=== PATIENT | male | born 1955 | race Caucasian/White ===

== ENCOUNTER → 2017-03-02 | Outpatient (CLI) | payer MEDICARE, OTHER ==
[~2017-03-02] MED LIST: ACTOS PO; ASPIRINEC PO; CERTAVITE PO; COLACE PO; CORRECTOL5 MG PO; DEPAKOTE (UD)250 M1 PO; FISH OIL 1,0001 CAP PO; HUMULIN R100 U/ML SUBQ; MAALOX SUSPENSI30 ML PO; MEVACOR PO; MYLANTA400 MG PO; NOVOLIN R100 U/ML INJ; OYSTER CALCIUM500 MG PO; PAXIL PO; PRILOSEC PO; ROCALTROL PO; ZETIA PO
--- NOTE | ~2017-03-02 | CT71 ---
[facility] A Service of [facility] RADIOLOGY TEXT RESULTS PATIENT: PARI LANDEROS LOCATION: [facility] : 53 UNIT #: [id number] AGE: [address]: Basilio Smith MD SEX: M ORDER DR: [id number] [facility] [address] [place], [place] [address] [id number] O MR#: [id number] [facility] #: [id number] NAME: PARI LANDEROS : 1955 SEX: M STUDY DATE/TIME: 03/02/2017 9:13 UNIT: [facility] ROOM: STUDY DESCRIPTION: CT Head Wo Contrast Attending Physician: Basilio Smith Sr., M.D. Referring Physician: Basilio Smith Sr., M.D. Ordering Physician: Basilio Smith Sr., M.D. Primary Care Physician: Basilio Smith Sr., M.D. MEDICAL IMAGING REPORT This report is preliminary unless electronic signature is present EXAM CT head without contrast, 03/02/2017. HISTORY 61-year-old male with chronic ear infection since 02/08/2017. COMPARISON STUDIES CT head, 01/16/2007, 05/28/2010, 09/09/2015, 06/19/2016. TECHNIQUE Routine unenhanced axial images performed through the brain. This CT exam was performed with one or more of the following radiation dose reduction techniques: automatic exposure control, adjustment of mA and/or kV according to patient size, and iterative reconstruction. FINDINGS No hemorrhage, acute infarction, mass lesion, or abnormal extraaxial fluid collection. No midline shift or focal mass effect. Ventricular system normal in size configuration. No acute bony abnormality. There is chronic appearing complete opacification of the bilateral mastoid air cells, similar in appearance dating back to 01/16/2007. Visualized paranasal sinuses are clear. IMPRESSION 1. No acute intracranial abnormality. 2. Chronic-appearing, complete opacification of bilateral mastoid air cells, similar in appearance dating back to 01/16/2007. Dictated by... Al K. Zuluaga, M.D. THIS IS AN ELECTRONICALLY VERIFIED REPORT [facility] A Service of [facility] RADIOLOGY TEXT RESULTS PATIENT: PARI LANDEROS [facility] [id number] : 53 UNIT #: [id number] AGE: [address]: Basilio Smith MD SEX: M ORDER DR: Al Zuluaga M.D. at 03/05/2017 1:18 PM ILIR/dieter TD: 03/02/2017 20:45 JOB #: [id number] MEDICAL IMAGING REPORT Page 1 of 1 COPY
== END | disposition home or self-care (01) ==
LOC: CCAT 02-28 08:00
DX: H66.40 Suppurative otitis media, unspecified, unspecified ear (principal)
CPT/HCPCS: 70450

== ENCOUNTER → 2017-04-13 | Outpatient (CLI) | payer MEDICARE, OTHER ==
--- NOTE | ~2017-04-13 | XA166 ---
[facility] A Service of [facility] RADIOLOGY TEXT RESULTS PATIENT: PARI LANDREOS LOCATION: [facility] : 53 UNIT #: [id number] AGE: [address]: Basilio Smith MD SEX: M ORDER DR: [id number] [facility] [address] [place], [place] [address] [id number] O MR#: [id number] Acc #: [id number] NAME: PARI LANDEROS : 1955 SEX: M STUDY DATE/TIME: 04/13/2017 12:51 UNIT: [facility] ROOM: STUDY DESCRIPTION: XA PICC Line Placement WO Port Attending Physician: Basilio Smith Sr., M.D. Referring Physician: Basilio Smith Sr., M.D. Ordering Physician: Basilio Smith Sr., M.D. Primary Care Physician: Basilio Smith Sr., M.D. MEDICAL IMAGING REPORT This report is preliminary unless electronic signature is present EXAM PICC line insertion. HISTORY IV access needed for antibiotic therapy. PRE-PROCEDURE The procedure was explained to the patient and/or patient outbound sales representative including risks, benefits, potential complications and potential for alternative forms of treatment. Informed consent was obtained, and prior to initiating the procedure a formal timeout procedure was performed. PROCEDURE Using full standard sterile barrier technique, including caps, gowns, gloves, masks, as well as sterile skin preparation and standard sterile draping, the right arm was prepped and draped in the usual fashion, and real-time sterile ultrasound guidance was used to localize an arm vein and to confirm vessel patency. A hard copy ultrasound image was recorded. After local anesthesia with 1% Xylocaine, the vein was punctured using real-time sterile ultrasound guidance, and an 0.018 guidewire was advanced into the superior vena cava, using fluoroscopic guidance. A 4-Yakut single-lumen PICC was then measured and deployed with the tip positioned in the superior vena cava. The position of the line was documented with a radiographic image. The line was secured in place with an adhesive dressing and an antibiotic patch was applied. Total fluoro time was 0.1 minutes. Single spot image obtained. IMPRESSION Successful placement of a 4-Yakut single-lumen PowerPICC via the right arm under ultrasound and fluoroscopic guidance. The tip of the PICC is in good position in the superior vena cava. [facility] A Service of [facility] RADIOLOGY TEXT RESULTS PATIENT: PARI LANDEROS LOCATION: [facility] : 53 UNIT #: [id number] AGE: [address]: Basilio Smith MD SEX: M ORDER DR: A single fluoroscopic spot image was obtained. Dictated by... Munir Acuña M.D. THIS IS AN ELECTRONICALLY VERIFIED REPORT Munir Acuña M.D. at 04/26/2017 2:13 PM SD/dieter TD: 04/14/2017 00:09 JOB #: [id number] MEDICAL IMAGING REPORT Page 1 of 1 COPY
== END | disposition home or self-care (01) ==
LOC: CIVR 12:30
PROC: 05H533Z Insertion of Infusion Device into Right Subclavian Vein, Percutaneous Approach (ICD-10-PCS; principal; 2017-04-13)
DX: H66.90 Otitis media, unspecified, unspecified ear (principal); B96.20 Unspecified Escherichia coli [E. coli] as the cause of diseases classified elsewhere; Z16.12 Extended spectrum beta lactamase (ESBL) resistance; Z45.2 Encounter for adjustment and management of vascular access device
CPT/HCPCS: 76937; 77001; C1751; J1642